=== PATIENT | female | born 1990 | race Caucasian/White ===

== ENCOUNTER 2019-11-13 07:53 | Outpatient (CLI) | payer OTHER, SELFPAY ==
[2019-11-13 08:29] LABS: Hematocrit 40.1 % (37.0-47.0); Hemoglobin 13.9 g/dL (12.0-15.0); Immature Platelet Fraction Pct 21.3 % (0.9-11.2); Mean Corpuscular HGB Conc 34.7 g/dl (32-36); Mean Corpuscular Hemoglobin 30.4 pg (26-34); Mean Corpuscular Volume 87.7 fl (80-100); Mean Platelet Volume 13.7 fl (7.4-10.4); Platelet Count Result 164 k/mm3 (150-375); Red Blood Count 4.57 M/mm3 (4.2-5.4); Red Cell Distribution Width 12.6 % (11.5-14.5)
[2019-11-14 07:18] LABS: Rapid Plasma Reagin Non-Reactive (NonReactive)
== END 2019-11-13 07:54 | disposition home or self-care (01) ==
PROVIDERS: PCP Physician Assistant; Visit Provider Obstetrics & Gynecology
DX: Z34.93 Encounter for supervision of normal pregnancy, unspecified, third trimester (principal); Z3A.00 Weeks of gestation of pregnancy not specified
CPT/HCPCS: 36415; 85027; 85055; 86592; 86850; 86900; 86901

== ENCOUNTER 2019-11-14 05:25 | Inpatient (IN) | payer OTHER, SELFPAY ==
[2019-11-14] VITALS (64 sets, daily range): BP systolic 80–125; BP diastolic 17–84; PULSE 28–204; RESP 12–18; TEMP 36.1–36.8; O2SAT 90–100; BMI 36.6
--- NOTE | 2019-11-14 05:25 | LDADM ---
This patient, Kenna Schultz, was admitted to Labor/Delivery/Recovery 120 on 11/14/19 at 05:25. Plans for labor, pain management and were discussed with patient. Patient/family oriented to hospital policies and general routines including ID bracelet, bed and alarms, visiting hours, pain management, procedures, bathroom and other care routines, personal items, smoking policy, room service/diet and guest tray routines, security routines, and visiting hours. Patient/Family are encouraged to report perceived risks to care and to ask questions if they do not understand what they are told or what they should do. See OBIX for further documentation.
--- NOTE | 2019-11-14 05:31 | WPDHPUPDATE1 ---
History and Physical Update Update Date/Time: 11/14/19 05:31 History and Physical has been reviewed, including an updated exam of the patient. There are NO changes in the patient's condition. Risks, benefits, and alternatives have been discussed and questions answered. Patient agrees to proceed with procedure.
--- NOTE | 2019-11-14 05:32 | PM.DS ---
DS: Admitting Diagnosis Admitting Diagnosis Admitting Diagnosis: term/prev section DS: Summary Time Spent with Patient Time attestation: Total time spent providing and/or coordinating discharge services: Exam Const: General: no acute distress Eyes: General: appearance normal, both eyes and all related structures Neck: Neck: supple and no JVD Thyroid: thyroid normal Resp: Effort & Inspection: normal respiratory effort Auscultation: clear to auscultation bilaterally Cardio: Rate: regular rate Rhythm: regular rhythm GI: Inspection: non-distended GI Palp: Yes Soft to palpation, No Tenderness to palpation present (GI) and No Guarding due to palpation present (GI) Auscultation: normal bowel sounds : General: Yes bladder normal to palpation External Female Exam: normal external appearance Speculum Exam - Vagina: normal vaginal discharge and No vaginal bleeding Speculum Exam - Cervix: nontender Bimanual exam- vagina & uterus: bladder normal to palpation and No Cervical tenderness present OB/external & speculum: No vaginal bleeding Skin: General skin exam: no rashes or lesions noted Extrem: General: normal to inspection and no edema Psych: Mental Status: mental status grossly normal Affect: normal affect Discharge Plan Discharge Attending physician on discharge: Lio Wang Discharging Clinician: Lio Wang Patient Disposition: Home, Self-Care Activity: may shower, no straining, may drive after 2 weeks and pelvic rest Diet: heart healthy Wound Care Instructions: follow printed instructions Discharge Instructions: Education: Mom and Baby Guide Given to: Patient Follow-Up: Call your delivering provider's office for an appointment to be seen in: 1 and 4 weeks Mom and baby should come to the [facility] for the follow-up appointment. Appointment Date/Time: Tuesday11/17/2019 at 9:00 am Call [phone] if you are unable to keep your appointment time. BREAST CARE: 1. Wear a snug supportive bra. 2. For engorgement discomfort: Breast Feeding: A. Apply warm moist washcloths B. Express milk as needed to relieve engorgement C. Wear loose clothing Bottle Feeding: A. May apply ice packs 3. For sore nipples: A. Identify correct latch-on B. Apply warm moist washcloths before and after nursing C. Air dry nipples after nursing D. May apply Lansinoh cream to nipples ABDOMINAL INCISION: (if applicable) 1. Allow incision to air dry 2. Do NOT use lotions for powders on your incision 3. When showering, allow soap and water to run over the incision, but do not wash incision EPISIOTOMY/PERINEAL CARE: 1. Until bleeding stops, use your loco bottle after urinating 2. Change your pad frequently throughout the day 3. No tub baths until seen by your physician - You may shower ACTIVITY: 1. Rest as much as possible. 2. Do not exercise or lift anything heavier than your baby (such as laundry or other children.) 3. Avoid stairs or driving as much as possible. 4. Do not put anything into the vagina. No douching, tampons, or sexual activity until seen by physician. NOTIFY PHYSICIAN IF YOU HAVE ANY QUESTIONS OR IF ANY OF THE FOLLOWING SYMPTOMS OCCUR: 1. If your episiotomy or incision becomes red, swollen, or more painful than what you have experienced in the hospital. 2. If your vaginal bleeding becomes foul smelling. 3. If your vaginal bleeding becomes more heavy than a period or if your bleeding changes from pink to bright red. However, you may pass an occasional walnut-sized clot once or twice for the first week . 4. If you experience a sharp, shooting pain in you calves. 5. If you discover a hard, reddened area on your breast or if you experience flu-like symptoms. DIET: 1. Eat regular, well-balanced meals. 2. Drink plenty of fluids daily. If breastfee
[2019-11-14] MEDS: LACTATED RINGERS 1,000 ML 999 ML IV CONT ×2 (05:46→06:44)
--- NOTE | 2019-11-14 06:52 | P.PNAN_ITS ---
Anes - Initial Pre Proc Eval Procedure: Operation Date: 11/14/19 07:30 Proposed Procedures p Repeat Section - Lio Wang MD Date/Time: 11/14/19 06:52 Surgeon: Lio Wang MD Pre Op Diagnosis: Repeat Patient Data Age: 29 Gender: F Height: 5 ft 2 in Weight: 91 kg Last Vital Signs Pulse 79 11/14/19 06:00 BP 119/78 11/14/19 06:00 Allergies Allergy/AdvReac Type Severity Reaction Status Date / Time Penicillins Allergy Mild Rash Verified 11/14/19 05:35 Home Medications Medication Instructions Recorded Confirmed Type levalbuterol tartrate 2 inh INHALATION Q6H PRN 11/12/19 11/12/19 History montelukast [Singulair] 10 mg PO DAILY 11/12/19 11/12/19 History Patient hx anesthesia problems: none Family hx anesthesia problems: none PMFSH Past Medical History Medical History (Updated 11/14/19 @ 06:53 by Lio Tejeda MD) Asthma Surgical History Surgical History (Updated 11/14/19 @ 06:53 by Lio Tejeda MD) History of section Family History Family History Other No pertinent family history Social History Social History Smoking status: Never smoker Substance use: never Gender identity (if verbalized by the patient): Female Spiritual care concerns: No Anes - Eval Final PreProcedure Day of Procedure 11/14/19 06:52 Patient weight: obese Heart: regular rate and rhythm Lungs: clear to auscultation Airway: Mallampati scale class II Neurological: alert and oriented Last oral intake: >/= 8 hours ASA classification: II Emergent: no Anesthetic plan: proceed Anesthesia type and monitoring: regional spinal and standard monitoring Informed Consent: The patient's anesthetic plan and its attendant risks and b enefits were discussed with the patient/family/POA. Questions were solicited and answers provided to the satisfaction of the patient/family/POA.
--- NOTE | 2019-11-14 08:01 | PM.PROC ---
Procedure Note - Detailed Date of procedure: 11/14/19 Pre-op diagnosis: Repeat Surgeon: Lio Wang MD Postop diagnosis: Repeat section at term Procedure: Repeat low-transverse section Q BL: 410cc Anesthesia: Spinal Findings: Male infant 7 lb 8 oz Apgars 8 9 at 1 and 5 minutes respectively. Normal-appearing uterus ovaries and tubes Complications: Description of procedure: The patient is prepped draped in the normal sterile fashion placed in the supine position. Under excellent spinal anesthetic the previous Pfannenstiel incision was opened and progressive layers to the fascia. Fascia was opened in an upward outward fashion bilaterally. The underlying muscles were sharply dissected. Parietal peritoneum elevated Renetta clamps and entered by sharp dissection. This was carried superiorly and then inferiorly to the bladder bladder blade was placed bladder flap formed bladder blade returned a low transverse incision made in the head delivered in the VALDEZ position. Anterior posterior shoulder delivered spontaneously. Cord clamped x2 and cut. passed off the table given Apgars of 8 [id number] and 9 [id number]. Cord blood was drawn. Placenta was then delivered manually. Uterus delivered from the abdomen wrapped in a moist towel. After assuring no membranes or debris made in the uterus, the uterus was closed with continuous running locking Vicryl edge to lateral edge. This was followed by 2nd imbricating running locking Vicryl from lateral edge to lateral edge. Hemostasis was assured ovaries and tubes appeared within normal uterus returned the abdomen. The laps removed and accounted for. The uterine incision inspected 1 last time noted be hemostatic. The fascia closed with continuous running 0 Vicryl from lateral edge to midline bilaterally. Irrigation subcutaneous layer. The skin closed with 4 Monocryl and glue. Patient went to recovery in satisfactory condition. All sponge, needle, instrument counts were correct. There were no immediate complications
[2019-11-14] MEDS: OXYTOCIN 30 UNITS/NS 500 ML 30 UNITS/500 ML BAG 125 UNITS (09:09)
--- NOTE | 2019-11-14 09:22 | PC.NURSE ---
pt heart rate 40-50s pt asymptomatic. Dr. Tejeda notified, no new orders obtained.
[2019-11-14] MEDS: OXYTOCIN 30 UNITS/NS 500 ML 30 UNITS/500 ML BAG 125 UNITS IV CONT (11:15)
--- NOTE | 2019-11-14 14:30 | PC.NURSE ---
Consulted with patient, mother was attempting to breast upon entering. Mother reports first child was bottle fed early and then had issues with . Mother does not want to supplement early if not necessary. Mother states has been eagerly latching. Reviewed feeding cues, frequencies, duration of feedings, feeding elimination flow sheet, and signs of adequate intake. Demonstrated stimulation techniques to wake for feeding. Mother independently put to breast using cross cradle positioning/alignment, holding breast in U hold and guided asymmetrical latch on. Infant was able to latch correctly. nursed eagerly, with steady draws and frequent swallowing noted. Reviewed signs of a correct latch, effective nursing and suck swallow ratio. Infant was able to maintain latch without discomfort to mother. Nipple care reviewed. Instructed mother to call out for RN assistance if she is unable to latch for feeding or she has discomfort with nursing. Instructed feeding should be initiated three hours from start of last feeding or if feeding cues are noted before. Mother voiced understanding of information shared.
[2019-11-14] MEDS: IBUPROFEN 600 MG TABLET PO (15:16)
[2019-11-14] MEDS: ACETAMINOPHEN 325 MG TABLET 650 MG PO (19:09)
[2019-11-15 00:15] VITALS: BP 113/64; PULSE 72; RESP 12; TEMP 36.9; O2SAT 97
[2019-11-15] MEDS: ACETAMINOPHEN 325 MG TABLET 650 MG PO ×3 (00:50→16:14)
[2019-11-15 04:40] VITALS: BP 127/63; PULSE 74; RESP 14; TEMP 36.4; O2SAT 95
[2019-11-15 05:27] LABS: Basophils Percent Auto 0.3 % (0.2-1.2); Eosinophils Absolute Auto 0.1 K/mm3 (0-0.3); Eosinophils Percent Auto 1.2 % (0-4.4); Hematocrit 37.2 % (37.0-47.0); Hemoglobin 12.3 g/dL (12.0-15.0); Immature Granulocyte Absolute 0.02 K/mm3 (0.00-0.031); Immature Granulocyte Percent A 0.2 % (0-0.5); Immature Platelet Fraction Pct 21.9 % (0.9-11.2); Lymphocytes Absolute Auto 2.29 K/mm3 (0.9-3.2); Lymphocytes Percent Auto 19.3 % (18.3-44.2); Mean Corpuscular HGB Conc 33.1 g/dl (32-36); Mean Corpuscular Hemoglobin 30.1 pg (26-34); Mean Platelet Volume 13.2 fl (7.4-10.4); Monocytes Absolute Auto 0.7 K/mm3 (0.1-0.6); Monocytes Percent Auto 5.6 % (2.6-8.5); Neutrophils Absolute Auto 8.7 K/mm3 (1.3-6.7); Neutrophils Percent Auto 73.4 % (45.5-73.1); Platelet Count Result 119 k/mm3 (150-375); Red Blood Count 4.09 M/mm3 (4.2-5.4); Red Cell Distribution Width 12.4 % (11.5-14.5); White Blood Count 11.9 K/mm3 (4.5-10.0)
[2019-11-15] MEDS: IBUPROFEN 600 MG TABLET PO ×3 (05:28→22:13)
--- NOTE | 2019-11-15 06:24 | PM.OBPNVD ---
OB - PN: Subj Subjective Date/time seen: 11/15/19 06:24 Patient comments: no complaints and pain well controlled baby status: doing well and nursing well OB - PN: Obj Data Labs CBC & Chem 7: 11/15/19 04:39 Labs: Laboratory Results - last 24 hr 11/15/19 04:39 WBC 11.9 H RBC 4.09 L Hgb 12.3 Hct 37.2 MCV 91.0 MCH 30.1 MCHC 33.1 RDW 12.4 Plt Count 119 L MPV 13.2 H Immature Gran % (Auto) 0.2 Neut % (Auto) 73.4 H Lymph % (Auto) 19.3 [place] % (Auto) 5.6 Eos % (Auto) 1.2 Baso % (Auto) 0.3 Lymph # (Auto) 2.29 [place] # (Auto) 0.7 H Eos # (Auto) 0.1 Baso # (Auto) 0.0 Abs Immat Gran (auto) 0.02 Absolute Neuts (auto) 8.7 H Absolute Nucleated RBC 0.0 Nucleated RBC % 0.0 % Immature Plt Fraction 21.9 H OB - PN A/P Plan day: 1 Plan: routine care, discharge home and follow up 6 weeks Time Spent With Patient Time: Total time spent is greater than 50% in coordination of care (as documented) at patient's floor/unit and/or counseling patient: Time with patient: less than 15 minutes Review of Systems Review of Systems: All systems reviewed & are unremarkable except as noted in HPI and below Exam Const: General: no acute distress Eyes: General: appearance normal, both eyes and all related structures Neck: Neck: supple and no JVD Thyroid: thyroid normal Resp: Effort & Inspection: normal respiratory effort Auscultation: clear to auscultation bilaterally Cardio: Rate: regular rate Rhythm: regular rhythm GI: Inspection: non-distended GI Palp: Yes Soft to palpation, No Tenderness to palpation present (GI) and No Guarding due to palpation present (GI) Auscultation: normal bowel sounds : General: Yes bladder normal to palpation External Female Exam: normal external appearance Speculum Exam - Vagina: normal vaginal discharge and No vaginal bleeding Speculum Exam - Cervix: nontender Bimanual exam- vagina & uterus: bladder normal to palpation and No Cervical tenderness present OB/external & speculum: No vaginal bleeding Skin: General skin exam: no rashes or lesions noted Extrem: General: normal to inspection and no edema Psych: Mental Status: mental status grossly normal Affect: normal affect
--- NOTE | 2019-11-15 06:25 | P.DS_ITS ---
DS: Admitting Diagnosis Admitting Diagnosis Admitting Diagnosis: term iup DS: Summary Time Spent with Patient Time attestation: Total time spent providing and/or coordinating discharge services: Exam Const: General: no acute distress Eyes: General: appearance normal, both eyes and all related structures Neck: Neck: supple and no JVD Thyroid: thyroid normal Resp: Effort & Inspection: normal respiratory effort Auscultation: clear to auscultation bilaterally Cardio: Rate: regular rate Rhythm: regular rhythm GI: Inspection: non-distended GI Palp: Yes Soft to palpation, No Tenderness to palpation present (GI) and No Guarding due to palpation present (GI) Auscultation: normal bowel sounds : General: Yes bladder normal to palpation External Female Exam: normal external appearance Speculum Exam - Vagina: normal vaginal discharge and No vaginal bleeding Speculum Exam - Cervix: nontender Bimanual exam- vagina & uterus: bladder normal to palpation and No Cervical tenderness present OB/external & speculum: No vaginal bleeding Skin: General skin exam: no rashes or lesions noted Extrem: General: normal to inspection and no edema Psych: Mental Status: mental status grossly normal Affect: normal affect DS: Data Data Completed and Pending Labs on day of discharge: Labs from last 24 hours 11/15/19 04:39 WBC 11.9 H RBC 4.09 L Hgb 12.3 Hct 37.2 MCV 91.0 MCH 30.1 MCHC 33.1 RDW 12.4 Plt Count 119 L MPV 13.2 H Immature Gran % (Auto) 0.2 Neut % (Auto) 73.4 H Lymph % (Auto) 19.3 [place] % (Auto) 5.6 Eos % (Auto) 1.2 Baso % (Auto) 0.3 Lymph # (Auto) 2.29 [place] # (Auto) 0.7 H Eos # (Auto) 0.1 Baso # (Auto) 0.0 Abs Immat Gran (auto) 0.02 Absolute Neuts (auto) 8.7 H Absolute Nucleated RBC 0.0 Nucleated RBC % 0.0 % Immature Plt Fraction 21.9 H Discharge Plan Discharge Attending physician on discharge: Lio Wagn Discharging Clinician: Lio Wang Patient Disposition: Home, Self-Care Activity: may shower, no straining, may drive after 2 weeks and pelvic rest Diet: heart healthy Wound Care Instructions: follow printed instructions Patient Instructions: Antibiotic Form Stand Alone Forms: General Discharge Information Follow-up/Referrals: Lio Wang MD [Physician] - Discharge Medications: Continued montelukast [Singulair] 10 mg Tablet 10 mg PO DAILY RF: 0 levalbuterol tartrate 45 mcg/actuation Hfa Aerosol Inhaler 2 inh INHALATION Q6H PRN (Reason: Wheezing) RF: 0 Date of admission: 11/14/19 05:25 Primary Care Provider: Livia,Lio Zimmer Admitting Provider: Lio Wang Attending physician on admission: Lio Wang
[2019-11-15] MEDS: LANOLIN (LANSINOH) 7.5 GM CREAM 1 APPLIC TOPICAL (07:17)
[2019-11-15] MEDS: MULTIVIT/MIN/PREN/FOL AC/IRON TABLET 1 TAB PO (07:17)
[2019-11-15] MEDS: DOCUSATE SODIUM 100 MG CAPSULE PO ×2 (07:18→16:14)
[2019-11-15] MEDS: SIMETHICONE 80 MG TAB.CHEW PO ×3 (07:18→16:14)
[2019-11-15 07:32] VITALS: BP 116/55; PULSE 78; RESP 18; TEMP 36.7
--- NOTE | 2019-11-15 09:03 | WPDANLDNPN2 ---
Anes-Prog Note L&D-Neuraxial Date/Time: 11/15/19 09:03 Neuraxial medications: intrathecal PF morphine Opiod-related complaints: none Patient feedback: Patient satisfied with post-operative pain management.
--- NOTE | 2019-11-15 09:04 | WPDANLDPN2 ---
Anes-Prog Note L&D Date/Time: 11/15/19 09:04 Comfortable throughout: section Neuraxial method: spinal Epidural/Spinal procedure site: clean & non-tender Neuro status: Neuro function grossly intact. Cardiovascular status: normal Respiratory status: normal Airway patency: baseline Mental status: baseline Post-Op hydration status: normal Vital Signs: Last Vital Signs Temp 36.7 C 11/15/19 07:32 Pulse 78 11/15/19 07:32 Resp 18 11/15/19 07:32 BP 116/55 L 11/15/19 07:32 Pulse Ox 95 11/15/19 04:40 I/O: Intake & Output 11/14/19 11/15/19 11/15/19 23:59 07:59 15:59 Intake Total 740 Output Total 150 Balance 590 Post-procedural complaints: none Patient feedback: Patient satisfied with anesthetic care.
--- NOTE | 2019-11-15 12:58 | PC.NURSE ---
Consult with pt., mother reports infant is eagerly latching without difficulties or discomfort.
[2019-11-15 19:18] VITALS: BP 127/67; PULSE 81; RESP 14; TEMP 37.1; O2SAT 99
--- NOTE | 2019-11-16 06:46 | PM.OBPNVD ---
OB - PN: Subj Subjective Date/time seen: 11/16/19 06:46 Patient comments: no complaints and pain well controlled baby status: doing well and nursing well OB - PN: Obj Data Labs CBC & Chem 7: 11/15/19 04:39 OB - PN A/P Time Spent With Patient Time: Total time spent is greater than 50% in coordination of care (as documented) at patient's floor/unit and/or counseling patient: Review of Systems Review of Systems: All systems reviewed & are unremarkable except as noted in HPI and below Exam Const: General: no acute distress Eyes: General: appearance normal, both eyes and all related structures Neck: Neck: supple and no JVD Thyroid: thyroid normal Resp: Effort & Inspection: normal respiratory effort Auscultation: clear to auscultation bilaterally Cardio: Rate: regular rate Rhythm: regular rhythm GI: Inspection: non-distended GI Palp: Yes Soft to palpation, No Tenderness to palpation present (GI) and No Guarding due to palpation present (GI) Auscultation: normal bowel sounds : General: Yes bladder normal to palpation External Female Exam: normal external appearance Speculum Exam - Vagina: normal vaginal discharge and No vaginal bleeding Speculum Exam - Cervix: nontender Bimanual exam- vagina & uterus: bladder normal to palpation and No Cervical tenderness present OB/external & speculum: No vaginal bleeding Skin: General skin exam: no rashes or lesions noted Extrem: General: normal to inspection and no edema Psych: Mental Status: mental status grossly normal Affect: normal affect
[2019-11-16 07:40] VITALS: BP 120/73; PULSE 72; RESP 16; TEMP 36.3; O2SAT 99
--- NOTE | 2019-11-16 07:50 | PC.NURSE ---
Mother is able to independently latch infant with appropriate positioning/alignment. Mother will supplement as she feels needs She denies any nipple discomfort, is feeding as required and waking infant to feed if needed. has had at least effective feedings in the past 24 hours, and is currently meeting outcomes for weight, output, jaundice and feeding frequencies. Mother states she feels confident to continue effective at home. Reviewed transition to breast milk, signs of adequate intake, and engorgement/relief. Instructed to call ICP if intake/output less than required. Reviewed regular medications mother is taking. Information provided per Loyda. Reviewed community resources on the [facility] website and in the Mom/Baby guide. Information on outpatient services provided. Mother has no further questions at this time.
[2019-11-16] MEDS: DOCUSATE SODIUM 100 MG CAPSULE PO (08:04)
[2019-11-16] MEDS: SIMETHICONE 80 MG TAB.CHEW PO (08:04)
[2019-11-16] MEDS: MULTIVIT/MIN/PREN/FOL AC/IRON TABLET 1 TAB PO (08:04)
[2019-11-16] MEDS: IBUPROFEN 600 MG TABLET PO (08:04)
[2019-11-17 08:47] VITALS: BP 115/73; PULSE 82; RESP 20; TEMP 37.1
--- NOTE | 2019-11-20 13:20 | PM.IMHP ---
H&P: HPI History of Present Illness Chief complaint: Repeat Narrative: Kenna Schultz is a 29 year old female 011 who is admitted at term for repeat section. Her has been uncomplicated Review of Systems Review of Systems: All systems reviewed & are unremarkable except as noted in HPI and below PMFSH Past Medical History Medical History Asthma Surgical History Surgical History History of section Family History Family History Other No pertinent family history Social History Social History Smoking status: Never smoker Substance use: never Gender identity (if verbalized by the patient): Female Spiritual care concerns: No Meds Home Medications and Allergies Home Medications Medication Instructions Recorded Confirmed Type levalbuterol tartrate 2 inh INHALATION Q6H PRN 11/12/19 11/12/19 History montelukast [Singulair] 10 mg PO DAILY 11/12/19 11/12/19 History Allergies Allergy/AdvReac Type Severity Reaction Status Date / Time Penicillins Allergy Mild Rash Verified 11/14/19 05:35 Exam Const: General: no acute distress Eyes: General: appearance normal, both eyes and all related structures Neck: Neck: supple and no JVD Thyroid: thyroid normal Resp: Effort & Inspection: normal respiratory effort Auscultation: clear to auscultation bilaterally Cardio: Rate: regular rate Rhythm: regular rhythm GI: Inspection: non-distended GI Palp: Yes Soft to palpation, No Tenderness to palpation present (GI) and No Guarding due to palpation present (GI) Auscultation: normal bowel sounds : General: Yes bladder normal to palpation External Female Exam: normal external appearance Speculum Exam - Vagina: normal vaginal discharge and No vaginal bleeding Speculum Exam - Cervix: nontender Bimanual exam- vagina & uterus: bladder normal to palpation and No Cervical tenderness present OB/external & speculum: No vaginal bleeding Skin: General skin exam: no rashes or lesions noted Extrem: General: normal to inspection and no edema Psych: Mental Status: mental status grossly normal Affect: normal affect Assessment and Plan Additional Plan impression: Term intrauterine with previous section Plan: Repeat transverse section
== END 2019-11-16 13:35 | disposition home or self-care (01) | DRG 540 ==
LOC: ANHLDR 05:27 → ANHOB2 10:25
PROVIDERS: Admitting Provider Obstetrics & Gynecology; PCP Physician Assistant; Visit Provider Obstetrics & Gynecology
PROC: 10D00Z1 Extraction of Products of Conception, Low, Open Approach (ICD-10-PCS; CPT 59514; principal; 2019-11-14 07:30)
DX: O34.211 Maternal care for low transverse scar from previous cesarean delivery (principal); Z3A.39 39 weeks gestation of pregnancy; Z37.0 Single live birth; O99.214 Obesity complicating childbirth; E66.9 Obesity, unspecified
CPT/HCPCS: 36415; 85025; 85055; A9270; J0131; J1200; J2274; J2405; J2590; J7120